=== PATIENT | female | born 1970 | race Caucasian/White ===

== ENCOUNTER 2022-07-03 12:40 | Inpatient (IN) | payer MEDICARE, MEDICAID ==
[2022-07-03] MEDS ORDERED: Lorazepam 2 MG/ML VIAL ONE (13:13)
[2022-07-03 14:03] LABS: #Basophils 0.1 10x3/uL (0.0-0.2); #Monocytes 0.5 10x3/uL (0.0-1.1); #Neutrophils 5.1 10x3/uL (1.5-8.4); %Basophils 0.7 % (0.0-2.0); %Eosinophils 0.1 % (0.0-6.0); %Lymphocytes 20.4 % (18.0-47.0); %Neutrophils 71.4 % (40.0-75.0); Hemoglobin 12.2 g/dL (12.0-15.5); Mean Corpuscular HGB CONC 33.8 g/dL (32.0-36.0); Mean Corpuscular Hemoglobin 27.9 pg (27.0-33.0); Mean Corpuscular Volume 82.4 fl (81.6-98.3); Mean Platelet Volume 8.2 fl (7.4-10.4); Platelet Count 285 10x3/uL (150-450); RBC Distribution Width 16.3 % (11.5-14.5); Red Blood Cell (RBC) Count 4.38 10x6/uL (3.90-5.03); White Blood Cell (WBC) Count 7.1 10x3/uL (3.5-10.5)
[2022-07-03 14:17] LABS: ALT (SGPT) 14 U/L (8-55); AST (SGOT) 23 U/L (5-34); Acetaminophen Less than 10.0 mcg/mL (10.0-30.0); Albumin 4.1 g/dL (3.5-5.0); Alcohol 128 mg/dL (Less than 10); Alkaline Phosphatase 135 U/L (40-110); Anion Gap 21 mmol/L (10-20); BUN (Urea Nitrogen) 6 mg/dL (9.8-20.1); Bilirubin, Total 0.3 mg/dL (0.2-1.2); CK (CPK) 118 U/L (29-168); Calc. Creatinine Clearance 0 mL/min (70-130); Carbon Dioxide 22 mmol/L (22-29); Chloride 97 mmol/L (98-107); Estimated GFR 106; Globulin 3.1 g/dL (2.4-3.5); Glucose 84 mg/dL (70-105); Lipase 20 U/L (8-78); Magnesium 1.5 mg/dL (1.6-2.6); Potassium 3.8 mmol/L (3.5-5.1); Protein, Total 7.2 g/dL (6.0-8.3); Salicylate Less than 8.0 mg/dL (15.0-30.0); Sodium 136 mmol/L (136-145)
[2022-07-03] MEDS ORDERED: Ondansetron PF 4 MG/2 ML Vial ONE (15:35)
[2022-07-03] MEDS ORDERED: Lorazepam 2 MG/ML VIAL SLOW IVP SCH (15:45)
[2022-07-03] MEDS ORDERED: Promethazine HCl 25 MG/ML VIAL ONE (16:28)
[2022-07-03 16:50] LABS: Lactic Acid 3.6 mmol/L (0.5-2.2)
[2022-07-03] MEDS ORDERED: chlordiazePOXIDE HCl 25 MG CAP ONE (17:52)
[2022-07-03] MEDS ORDERED: Lorazepam 1 MG TAB PO PRN (17:59)
[2022-07-03] MEDS ORDERED: Lorazepam 2 MG/ML VIAL IM PRN (17:59)
[2022-07-03] MEDS ORDERED: Electrolyte Replacement Protocol 1 EACH FS PRN (18:00)
[2022-07-03 19:33] LABS: SARS-CoV-2 NAA Rapid Test Not Detected (NotDetected)
[2022-07-03 19:39] VITALS: BMI 24.5
[2022-07-03] MEDS: Lactated Ringer's 1,000 ML IV SCH (20:58)
[2022-07-03] MEDS: Nicotine 14 MG PATCH TD SCH (20:58)
[2022-07-03] MEDS: Famotidine/PF 20 mg/2ml Vial SLOW IVP SCH (20:59)
[2022-07-03] MEDS: Lorazepam 1 MG TAB PO SCH (20:59)
[2022-07-03] MEDS: Thiamine HCl 200 MG/2 ML VIAL SLOW IVP SCH (21:00)
[2022-07-03] MEDS ORDERED: Magnesium 2 GM/50 ML(in water) 2 GM in Premix Bag 1 BAG IVPB SCH (21:00)
[2022-07-03] MEDS: Acetaminophen 325 MG TAB PO PRN (21:32)
[2022-07-03 22:54] LABS: Bilirubin Neg (Negative); Blood, Urine Negative (Negative); Clarity Clear (Clear); Glucose, Urine (Dipstick) Normal (Negative); Ketone, Urine Negative (Negative); Leukocyte Negative (Negative); Nitrite Negative (Negative); Protein, Urine (Dipstick) Negative (Neg-Trace); Urobilinogen Normal mg/dL (Less than 2)
[2022-07-03 23:02] LABS: Amphetamine Not Detected (NotDetected); Barbiturates Screen Not Detected (NotDetected); Benzodiazepine Screen Detected (NotDetected); Cocaine Metabolite Screen Not Detected (NotDetected); Methadone Not Detected (NotDetected); Methamphetamine Not Detected (NotDetected); Opiate Screen Not Detected (NotDetected); Oxycodone Screen Not Detected (NotDetected); Phencyclidine (PCP) Not Detected (NotDetected); THC/Cannabinoid Screen Not Detected (NotDetected); Tricyclic Screen Not Detected (NotDetected)
[2022-07-03 23:03] LABS: Bacteria/HPF Rare-Few HPF (None Seen); RBC/HPF 0-3 HPF (0-3); Squamous Epithelial 0-3 HPF (0-3); WBC/HPF 0-3 HPF (0-3)
[2022-07-04] MEDS: Lorazepam 1 MG TAB PO SCH ×4 (02:30→20:07)
[2022-07-04] MEDS: chlordiazePOXIDE HCl 25 MG CAP PO SCH ×3 (02:30→17:33)
[2022-07-04 04:12] LABS: Anion Gap 17 mmol/L (10-20); BUN (Urea Nitrogen) 7 mg/dL (9.8-20.1); Calc. Creatinine Clearance 97 mL/min (70-130); Calcium 8.8 mg/dL (7.8-10.44); Carbon Dioxide 22 mmol/L (22-29); Chloride 102 mmol/L (98-107); Estimated GFR 106; Glucose 69 mg/dL (70-105); Magnesium 2.3 mg/dL (1.6-2.6); Potassium 3.7 mmol/L (3.5-5.1); Sodium 137 mmol/L (136-145)
[2022-07-04 04:14] LABS: Lactic Acid 0.9 mmol/L (0.5-2.2)
[2022-07-04 04:31] LABS: Phosphorus 3.5 mg/dL (2.3-4.7)
[2022-07-04] MEDS: Levothyroxine Sodium 75 MCG TAB PO SCH (05:09)
[2022-07-04] MEDS: Acetaminophen 325 MG TAB PO PRN ×3 (05:12→17:56)
[2022-07-04] MEDS: Lactated Ringer's 1,000 ML IV SCH (06:00)
[2022-07-04] MEDS: Multivit, Therapeutic 1 TAB PO SCH (08:02)
[2022-07-04] MEDS: Folic Acid 1 MG TAB PO SCH (08:02)
[2022-07-04] MEDS: Enoxaparin Sodium 40 MG/0.4 ML SYRINGE SC SCH (08:02)
[2022-07-04] MEDS: Famotidine/PF 20 mg/2ml Vial SLOW IVP SCH ×2 (08:02→20:07)
[2022-07-04] MEDS: Ondansetron PF 4 MG/2 ML Vial IVP PRN (08:52)
[2022-07-04] MEDS: Prochlorperazine Edisylate 10 MG in Sodium Chloride 0.9% 50 ML IVPB PRN (12:14)
[2022-07-04] MEDS ORDERED: Lorazepam 1 MG TAB PO PRN (18:00)
[2022-07-04] MEDS: Nicotine 14 MG PATCH TD SCH (20:05)
[2022-07-04] MEDS: Thiamine HCl 200 MG/2 ML VIAL SLOW IVP SCH (20:06)
[2022-07-05] MEDS: Acetaminophen 325 MG TAB PO PRN ×4 (02:15→23:12)
[2022-07-05] MEDS: chlordiazePOXIDE HCl 25 MG CAP PO SCH ×2 (02:15→11:00)
[2022-07-05] MEDS: Lorazepam 1 MG TAB PO SCH ×4 (02:15→15:20)
[2022-07-05] MEDS: Levothyroxine Sodium 75 MCG TAB PO SCH (05:19)
[2022-07-05] MEDS: Enoxaparin Sodium 40 MG/0.4 ML SYRINGE SC SCH (08:25)
[2022-07-05] MEDS: Famotidine/PF 20 mg/2ml Vial SLOW IVP SCH ×2 (08:25→20:07)
[2022-07-05] MEDS: Folic Acid 1 MG TAB PO SCH (08:26)
[2022-07-05] MEDS: Multivit, Therapeutic 1 TAB PO SCH (08:26)
[2022-07-05] MEDS: Prochlorperazine Edisylate 10 MG in Sodium Chloride 0.9% 50 ML IVPB PRN (09:00)
[2022-07-05] MEDS: Ondansetron PF 4 MG/2 ML Vial IVP PRN (12:54)
[2022-07-05] MEDS: Lorazepam 0.5 MG TAB PO SCH ×2 (17:50→23:12)
[2022-07-05] MEDS ORDERED: Lorazepam 1 MG TAB PO PRN (18:00)
[2022-07-05] MEDS: Nicotine 14 MG PATCH TD SCH (20:08)
[2022-07-05] MEDS: Thiamine HCl 200 MG/2 ML VIAL SLOW IVP SCH (20:08)
[2022-07-06] MEDS ORDERED: Ketorolac Tromethamine 30 MG/ML VIAL IVP SCH (02:30)
[2022-07-06 05:48] LABS: ALT (SGPT) 11 U/L (8-55); AST (SGOT) 17 U/L (5-34); Albumin 3.8 g/dL (3.5-5.0); Alkaline Phosphatase 120 U/L (40-110); Anion Gap 13 mmol/L (10-20); BUN (Urea Nitrogen) 12 mg/dL (9.8-20.1); Bilirubin, Total 0.3 mg/dL (0.2-1.2); Calc. Creatinine Clearance 89 mL/min (70-130); Calcium 9.5 mg/dL (7.8-10.44); Carbon Dioxide 26 mmol/L (22-29); Chloride 101 mmol/L (98-107); Estimated GFR 102; Globulin 2.8 g/dL (2.4-3.5); Glucose 83 mg/dL (70-105); Magnesium 1.9 mg/dL (1.6-2.6); Phosphorus 4.1 mg/dL (2.3-4.7); Potassium 4.1 mmol/L (3.5-5.1); Protein, Total 6.6 g/dL (6.0-8.3); Sodium 136 mmol/L (136-145)
[2022-07-06] MEDS: Levothyroxine Sodium 75 MCG TAB PO SCH (05:51)
[2022-07-06] MEDS: Lorazepam 0.5 MG TAB PO SCH ×2 (05:51→11:04)
[2022-07-06] MEDS: Ondansetron PF 4 MG/2 ML Vial IVP PRN (05:58)
[2022-07-06] MEDS ORDERED: Magnesium 2 GM/50 ML(in water) 2 GM in Premix Bag 1 BAG IVPB SCH (06:00)
[2022-07-06] MEDS: Acetaminophen 325 MG TAB PO PRN ×2 (06:05→11:05)
[2022-07-06] MEDS: Enoxaparin Sodium 40 MG/0.4 ML SYRINGE SC SCH (09:05)
[2022-07-06] MEDS: Multivit, Therapeutic 1 TAB PO SCH (09:05)
[2022-07-06] MEDS: Folic Acid 1 MG TAB PO SCH (09:05)
[2022-07-06] MEDS: Famotidine/PF 20 mg/2ml Vial SLOW IVP SCH (09:05)
[2022-07-06 12:59] VITALS: BP 131/77; TEMP 98.9
[2022-07-06] MEDS ORDERED: Thiamine 100 MG TAB PO SCH (18:00)
[2022-07-06] MEDS ORDERED: Lorazepam 0.5 MG TAB PO PRN (18:00)
== END 2022-07-06 13:03 | disposition home or self-care (01) | DRG 897 ==
LOC: CSHERS 12:40 → CSHIMCU 19:30 → CSHTELE 07-06 10:01
PROVIDERS: ADMIT Internal Medicine; ATTEND Hospitalist
DX: F10.239 Alcohol dependence with withdrawal, unspecified (principal); E87.2 Acidosis; E03.9 Hypothyroidism, unspecified; J45.909 Unspecified asthma, uncomplicated; F31.9 Bipolar disorder, unspecified; F43.10 Post-traumatic stress disorder, unspecified; F17.210 Nicotine dependence, cigarettes, uncomplicated; E16.2 Hypoglycemia, unspecified; F12.129 Cannabis abuse with intoxication, unspecified; Z20.822 Contact with and (suspected) exposure to COVID-19; Z88.0 Allergy status to penicillin; Z79.899 Other long term (current) drug therapy; I25.2 Old myocardial infarction; Z90.49 Acquired absence of other specified parts of digestive tract; Z98.890 Other specified postprocedural states
CPT/HCPCS: 36415; 36416; 80048; 80053; 80306; 80307; 81001; 82550; 83605; 83690; 83735; 84100; 85025; 93005; 94760; J0780; J1650; J1885; J2060; J2405; J2550; J3411; J3475; J7120; S0028; U0002